=== PATIENT | male | born 1995 ===

== ENCOUNTER 2019-07-15 09:17 | Emergency (ER) | payer BC ==
[~2019-07-15] VITALS: Ht 180.3 cm; Wt 103.4 kg
--- NOTE | 2019-07-15 09:51 | NUR ---
Pt to 30 from lobby
[2019-07-15] MEDS ORDERED: ONDANSETRON 2MG/ML, 2ML IVPush ONE (10:30)
[2019-07-15] MEDS ORDERED: SODIUM CHLORIDE FLUSH 10ML SYR IVF ONE (10:30)
[2019-07-15] MEDS ORDERED: HYDROmorphone 2 MG/ML, 1ML IVPush PRN (10:30)
[2019-07-15] MEDS ORDERED: ONDANSETRON 2MG/ML, 2ML ONE (10:40)
[2019-07-15] MEDS ORDERED: HYDROmorphone 1 MG/ML, 1ML VIAL ONE (10:40)
[2019-07-15 10:58] LABS: BASOPHILS # (AUTO) 0.04 x10^3/uL (0-0.1); BASOPHILS % (AUTO) 1 % (0-1); EOSINOPHILS # (AUTO) 0.24 x10^3/uL (0-0.4); EOSINOPHILS % (AUTO) 6 % (1-7); LYMPHOCYTES # (AUTO) 1.87 x10^3/uL (1-3.4); LYMPHOCYTES % (AUTO) 46 % (22-44); MD NO; MEAN CORPUSCULAR HEMOGLOBIN 29.9 pg (27.5-34.5); MEAN CORPUSCULAR HGB CONC 33.4 g/dL (33.2-36.2); MEAN CORPUSCULAR VOLUME 89.6 fL (81-97); MEAN PLATELET VOLUME 8.4 fL (7.4-10.4); MONOCYTES # (AUTO) 0.27 x10^3/uL (0.2-0.8); MONOCYTES % (AUTO) 7 % (2-9); NEUTROPHILS # (AUTO) 1.68 x10^3/uL (1.8-6.8); NEUTROPHILS % (AUTO) 41 % (42-75); PLATELET COUNT 261 x10^3/uL (130-400); RED CELL DISTRIBUTION WIDTH 13.1 % (9.4-14.8)
[2019-07-15 11:01] LABS: MICROSCOPIC NOT IND
[2019-07-15 11:04] LABS: ALANINE AMINOTRANSFERASE 15 U/L (12-78); ALBUMIN 3.8 g/dL (3.4-5.0); ANION GAP 6 mmol/L (5-15); CALCIUM 8.8 mg/dL (8.5-10.1); CHLORIDE 108 mmol/L (98-107); CREATININE 0.73 mg/dL (0.7-1.3)
[2019-07-15 11:05] LABS: ALKALINE PHOSPHATASE 82 U/L (45-117); BILIRUBIN,TOTAL 0.5 mg/dL (0.2-1.0); TOTAL PROTEIN 7.8 g/dL (6.4-8.2)
[2019-07-15 11:07] LABS: CULTURE INDICATED? NO
[2019-07-15] MEDS ORDERED: OMNIPAQUE 350 MG/ML, 100ML BOTTLE ONE (12:00)
[2019-07-15 12:15] VITALS: BP 120/64
[2019-07-15] MEDS ORDERED: CEFTRIAXONE PMX 1GM/50ML 50 ML IV ONE (12:30)
[2019-07-15] MEDS ORDERED: CEFTRIAXONE PMX 1GM/50ML 50 ML ONE (12:46)
== END 2019-07-15 13:47 | disposition home or self-care (01) ==
LOC: ED 12:31
DX: N41.0 Acute prostatitis (principal); R10.13 Epigastric pain; J45.909 Unspecified asthma, uncomplicated; Z72.89 Other problems related to lifestyle
CPT/HCPCS: 36415; 74177; 80053; 81003; 83690; 85025; 96365; 96375; 99284; J0696; J1170; J2405; Q9967